=== PATIENT | female | born 1960 | race Two or more races ===

== ENCOUNTER → 2024-09-11 | Outpatient (CLI) | payer MEDICAID, SELFPAY ==
--- NOTE | 2024-09-11 14:30 | XR_ITS ---
Examination: Breast ultrasound, unilateral, left Date and time of exam: September 11, 2024, 1517 hours INDICATIONS: Mammogram July 04, 2024 7 mm asymmetry medial left breast 1.5 mm focal asymmetry central left breast Technique: Real-time gusman scale ultrasonographic imaging performed left breast including all 4 quadrants as well as nipple retroareolar and axillary region. Findings: 8:00 circumscribed nodule 4 x 6 mm Retroareolar nodule circumscribed 7 x 9 mm IMPRESSION: BI-RADS Category 3: Probably benign findings One additional 6 month left breast sonogram follow-up is needed to document stability of solid nodules described above
--- NOTE | 2024-09-11 15:00 | XR_ITS ---
Examination: Diagnostic digital mammography, unilateral, left Computer aided detection 3-D breast Tomosynthesis, unilateral Date and time of exam: September 11, 2024 1527 hours INDICATIONS: Outside mammogram June 04, 2024 7 mm focal asymmetry medial left breast 1.5 cm focal asymmetry central left breast Technique: Nonmagnified MLO, CC views of the left breast have been obtained, reconstructed from 3-D Tomosynthesis images. R2 computer aided detection program utilized for evaluation of suspicious masses and/or abnormal calcifications. 3-D Tomosynthesis images obtained. Findings: Scattered areas of fibroglandular density 10 mm retroareolar nodule and 4 mm circumscribed nodule outer upper left breast Impression: BI-RADS category 3: Probably benign findings One additional 6 month left mammogram follow-up is needed to document stability of nodules described above
== END | disposition home or self-care (01) ==
LOC: CDIM 14:21
DX: R92.332 Mammographic heterogeneous density, left breast (principal); N63.42 Unspecified lump in left breast, subareolar; N63.21 Unspecified lump in the left breast, upper outer quadrant
CPT/HCPCS: 76641; 77061; 77065; G0279